=== PATIENT | female | born 1980 | race Caucasian/White ===

== ENCOUNTER 2018-08-12 21:39 | Outpatient (CLI) | payer MEDICAID ==
[2018-08-13 03:47] LABS: ADD UMIC YES; UR ASCORBIC ACID NEGATIVE (NEGATIVE); UR BACTERIA FEW /HPF (NONE SEEN); UR BILIRUBIN (Dip) NEGATIVE (NEGATIVE); UR BLOOD (Dip) NEGATIVE (NEGATIVE); UR CLARITY SLIGHTLY CLOUDY (CLEAR); UR COLOR YELLOW (YELLOW); UR GLUCOSE (Dip) NEGATIVE (NEGATIVE); UR KETONES (Dip) 1+ mg/dL (NEGATIVE); UR LEUKOCYTE ESTERASE (Dip) TRACE Leu/ul (NEGATIVE); UR NITRITE (Dip) NEGATIVE (NEGATIVE); UR RBC 1 /HPF (0-5); UR SPECIFIC GRAVITY (Dip) 1.015 (1.003-1.030); UR SQUAMOUS EPITHELIAL CELL FEW /HPF (FEW); UR TOTAL PROTEIN (Dip) NEGATIVE (NEGATIVE); UR UROBILINOGEN (Dip) NEGATIVE (NEGATIVE); UR WBC 4 /HPF (0-5)
== END 2018-08-13 03:08 | disposition home or self-care (01) ==
LOC: OBT 21:39 → L-D 08-13 00:38 → OBT 08-13 03:08
DX: O36.8330 Maternal care for abnormalities of the fetal heart rate or rhythm, third trimester, not applicable or unspecified (principal); O09.523 Supervision of elderly multigravida, third trimester; Z3A.38 38 weeks gestation of pregnancy
CPT/HCPCS: 76818; 81001

== ENCOUNTER 2018-08-24 16:51 | Inpatient (IN) | payer MEDICAID ==
[2018-08-24] MEDS ORDERED: IBUPROFEN 600 MG TAB PO (21:00)
[2018-08-24] MEDS ORDERED: MISOPROSTOL 200 MCG TAB PR (21:00)
[2018-08-24] MEDS ORDERED: BUTORPHANOL 2 MG INJ IV (21:00)
[2018-08-24] MEDS ORDERED: METHYLERGONOVINE 0.2 MG INJ IM (21:00)
[2018-08-24] MEDS ORDERED: OXYTOCIN 30 UNITS/LR 500 ML IV ×2 (21:00)
[2018-08-24] MEDS ORDERED: LIDOCAINE 1% (MPF) 30 ML INJ INJ (21:00)
[2018-08-24] MEDS ORDERED: CARBOPROST 250 MCG INJ IM (21:00)
[2018-08-24] MEDS: LACTATED RINGER'S 1,000 ML IV* (21:16)
[2018-08-24 21:18] LABS: ADD MAN DIFF? NO
[2018-08-24 21:22] LABS: WHITE BLOOD COUNT 8.6 10^3/ul (4.8-10.8)
[2018-08-24 21:22] LABS: BASOPHILS % 0.1 % (0.0-2.0); EOSINOPHILS # 0.1 10^3/ul (0.0-0.5); EOSINOPHILS % 0.7 % (0.0-7.0); HEMATOCRIT 35.5 % (37.0-47.0); LYMPHOCYTES # 2.1 10^3/ul (0.8-2.9); LYMPHOCYTES % 23.9 % (15.0-51.0); MEAN CORPUSCULAR HEMOGLOBIN 22.1 pg (29.0-33.0); MEAN CORPUSCULAR VOLUME 71.4 fl (82.0-101.0); MEAN PLATELET VOLUME 10.8 fl (7.4-10.4); MONOCYTE # 0.8 10^3/ul (0.3-0.9); NEUTROPHIL # 5.6 10^3/ul (1.6-7.5); NEUTROPHILS % 65.5 % (39.0-77.0); PLATELET COUNT 292 10^3/UL (140-415); RED BLOOD COUNT 4.97 10^6/ul (4.20-5.40); RED CELL DISTRIBUTION WIDTH 14.6 % (11.5-14.5)
[2018-08-24 21:50] LABS: INR 0.94; PROTIME 12.7 Sec (11.9-14.9)
[2018-08-24 21:51] LABS: PARTIAL THROMBOPLASTIN TIME 28.1 Sec (25.0-35.0)
[2018-08-24] MEDS: LACTATED RINGER'S 1,000 ML IV (21:51)
[2018-08-24 22:23] LABS: HEPATITIS B SURFACE ANTIGEN NEGATIVE (NEGATIVE)
[2018-08-24] MEDS ORDERED: FENTAnyl 2MCG/ML-ROPIV 0.2% 100 ML (22:58)
[2018-08-24 23:12] LABS: AMPHETAMINE/METHAMPHETAMINE Negative (NEGATIVE); BARBITURATES Negative (NEGATIVE); BENZODIAZEPINES Negative (NEGATIVE); CANNABINOIDS Negative (NEGATIVE); COCAINE Negative (NEGATIVE); OPIATES Negative (NEGATIVE)
[2018-08-24] MEDS: FENTAnyl 2MCG/ML-ROPIV 0.2% 100 ML BAG EPI (23:22)
[2018-08-24] MEDS ORDERED: NALOXONE (0.4 MG/ML) INJ IV (23:30)
[2018-08-25] MEDS ORDERED: ONDANSETRON 4 MG INJ (00:28)
[2018-08-25] MEDS: ONDANSETRON 4 MG INJ IV (00:36)
[2018-08-25] MEDS: OXYTOCIN 30 UNITS/LR 500 ML IV ×3 (01:04→10:30)
[2018-08-25] MEDS: LACTATED RINGER'S 1,000 ML IV* (05:03)
[2018-08-25] MEDS ORDERED: METHYLERGONOVINE 0.2 MG INJ IM (10:30)
[2018-08-25] MEDS ORDERED: ZOLPIDEM 5 MG TAB PO (10:30)
[2018-08-25] MEDS ORDERED: OXYTOCIN 30 UNITS/LR 500 ML IV (10:30)
[2018-08-25] MEDS ORDERED: SENNA/DOCUSATE NA (8.6MG/50MG) TAB PO (10:30)
[2018-08-25] MEDS ORDERED: CARBOPROST 250 MCG INJ IM (10:30)
[2018-08-25] MEDS ORDERED: MISOPROSTOL 200 MCG TAB PR (10:30)
[2018-08-25] MEDS ORDERED: NACL 0.9% 3 ML SYG IV (10:30)
[2018-08-25] MEDS: IBUPROFEN 600 MG TAB PO ×3 (12:48→23:35)
[2018-08-25] MEDS: LANOLIN 7 GM TUBE TOP (18:53)
[2018-08-25] MEDS: BENZOCAINE 20% 56 ML SPRAY TOP (18:54)
[2018-08-25] MEDS: WITCH HAZEL/GLYCERIN PAD PR (18:54)
[2018-08-25] MEDS: OXYCODONE/ASPIRIN (4.88/325) TAB PO (19:04)
[2018-08-25 19:37] LABS: RAPID PLASMA REAGIN NONREACTIVE (NR)
[2018-08-25] MEDS: SENNA/DOCUSATE NA (8.6MG/50MG) TAB PO (21:10)
[2018-08-26] MEDS: IBUPROFEN 600 MG TAB PO ×4 (05:30→23:35)
[2018-08-26] MEDS: SENNA/DOCUSATE NA (8.6MG/50MG) TAB PO ×2 (09:27→21:17)
[2018-08-26 10:55] LABS: ADD MAN DIFF? NO
[2018-08-26 10:58] LABS: BASOPHILS % 0.2 % (0.0-2.0); EOSINOPHILS # 0.2 10^3/ul (0.0-0.5); EOSINOPHILS % 1.4 % (0.0-7.0); HEMATOCRIT 32.5 % (37.0-47.0); HEMOGLOBIN 10.1 g/dl (12.0-16.0); LYMPHOCYTES # 2.8 10^3/ul (0.8-2.9); LYMPHOCYTES % 24.9 % (15.0-51.0); MEAN CORPUSCULAR HEMOGLOBIN 22.3 pg (29.0-33.0); MEAN CORPUSCULAR HGB CONC 31.1 g/dl (32.0-37.0); MEAN CORPUSCULAR VOLUME 71.7 fl (82.0-101.0); MEAN PLATELET VOLUME 10.8 fl (7.4-10.4); MONOCYTE # 0.8 10^3/ul (0.3-0.9); NEUTROPHIL # 7.3 10^3/ul (1.6-7.5); NEUTROPHILS % 65.8 % (39.0-77.0); PLATELET COUNT 256 10^3/UL (140-415); RED BLOOD COUNT 4.53 10^6/ul (4.20-5.40); RED CELL DISTRIBUTION WIDTH 14.7 % (11.5-14.5)
[2018-08-26 10:58] LABS: WHITE BLOOD COUNT 11.1 10^3/ul (4.8-10.8)
[2018-08-27] MEDS: IBUPROFEN 600 MG TAB PO ×2 (06:00→11:52)
[2018-08-27] MEDS: SENNA/DOCUSATE NA (8.6MG/50MG) TAB PO (09:24)
[2018-08-27] MEDS: DIPHTH/TET/ACEL PERTUSS (ADULT) 0.5 ML VIAL IM* (11:53)
== END 2018-08-27 14:15 | disposition home or self-care (01) | DRG 775 ==
LOC: OBT 16:51 → PP1 08-25 09:53 → L-D 16:51 → OBT 20:35 → L-D 20:36
PROVIDERS: Obstetrics & Gynecology
PROC: 10E0XZZ Delivery of Products of Conception, External Approach (ICD-10-PCS; principal; 2018-08-25)
DX: O69.81X0 Labor and delivery complicated by cord around neck, without compression, not applicable or unspecified (principal); Z3A.39 39 weeks gestation of pregnancy; Z37.0 Single live birth
CPT/HCPCS: 62319; 76815; 80307; 85025; 85610; 85730; 86592; 86850; 86900; 86901; 87340